=== PATIENT | female | born 1965 | race Caucasian/White ===

== ENCOUNTER 2016-05-10 15:10 | Emergency (ER) | payer BC ==
--- NOTE | 2016-05-10 16:07 | EDM.PDOC ---
ED HISTORY OF PRESENT ILLNESS - General Chief Complaint: Cardiovascular Problem Stated Complaint: CHEST PAIN Time Seen by Provider: 05/10/16 16:07 Source: Reports: Patient, Family, RN notes reviewed - History of Present Illness INITIAL COMMENTS - FREE TEXT/NARRATIVE: 50-year-old female presents with to have her heart checked out As noted some left-sided twinges of the left parasternal heart border for the past week; it does not happen with exertion The patient has a history of asthma and notes that her allergies are "acting up " while she is at her dad's place. 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: Reports: Endometriosis, , Other (see below) Other OB/BYN History: hysterectomy - Infectious Disease History Infectious Disease History: Reports: Chicken pox - Past Surgical History Respiratory Surgical History: Reports: None Social & Family History - Family History Family Medical History: Noncontributory - Tobacco Use Smoking Status *Q: Never Smoker Second Hand Smoke Exposure: No - Caffeine Use Caffeine Use: Reports: Soda - Recreational Drug Use Recreational Drug Use: No ED ROS GENERAL - Review of Systems Review Of Systems: See Below Constitutional: Reports: no symptoms HEENT: Reports: No symptoms Respiratory: Reports: shortness of breath Cardiovascular: Reports: Chest pain, Blood pressure problem, Other (Patient notes borderline hypertension, lipids are normal, positive family history of heart disease) Endocrine: Reports: no symptoms GI/Abdominal: Reports: No symptoms : Reports: no symptoms Musculoskeletal: Reports: no symptoms Skin: Reports: no symptoms Neurological: Reports: no symptoms ED EXAM, GENERAL - Physical Exam Exam: See Below Exam Limited By: No limitations General Appearance: alert, WD/WN, no apparent distress, anxious Eye Exam: bilateral eye: normal inspection, PERRL Ears: normal external exam, normal canal, hearing grossly normal Nose: normal inspection Throat/Mouth: Normal inspection, Normal lips, Normal teeth, Normal gums, Normal oropharynx, Normal voice, No airway compromise Head: atraumatic, normocephalic Neck: normal inspection, supple, non-tender Respiratory/Chest: no respiratory distress, lungs clear, normal breath sounds, other (chest wall tenderness along peristernal border) Cardiovascular: regular rate, rhythm, no murmur, no rub GI/Abdominal: normal bowel sounds, soft, non tender, no organomegaly Neurological: alert, oriented, CN II-XII intact, normal cognition Course - Vital Signs Text/Narrative:: ECG reviewed and normal Chest x-ray reviewed and normal Suspect chest wall pain Treat with OTC ibuprofen Last Recorded V/S: Last Vital Signs Temp 98.1 F 05/10/16 15:27 Pulse 61 05/10/16 17:13 Resp 12 05/10/16 17:13 BP 151/84 H 05/10/16 17:13 Pulse Ox 97 05/10/16 17:13 - Orders/Labs/Meds Orders: Active Orders 24 hr Category Date Time Status Cardiac Monitoring [RC] .As Directed Care 05/10/16 16:07 Active EKG Documentation Completion [RC] ASDIRECTED Care 05/10/16 16:08 Active Chest 2V [CR] Stat Exams 05/10/16 16:07 Taken EKG 12 Lead [EK] Stat Ther 05/10/16 16:07 Ordered Departure - Departure Time of Disposition: 17:26 Disposition: Home, Self-Care 01 Condition: good Clinical Impression: Chest wall pain Forms: ED Department Discharge Additional Instructions: Use ibuprofen 600 mg 3 times daily for chest pain Return to primary care provider if persistent symptoms - My Orders Last 24 Hours: My Active Orders 05/10/16 16:07 Cardiac Monitoring [RC] .As Directed Chest 2V [CR] Stat EKG 12 Lead [EK] Stat 05/10/16 16:08 EKG Documentation Completion [RC] ASDIRECTED - Assessment/Plan Last 24 Hours: My Active Orders 05/10/16 16:07 Cardiac Monitoring [RC] .As Directed Chest 2V [CR] Stat EKG 12 Lead [EK] Stat 05/10/16 16:08 EKG Documentation Completion [RC] ASDIRECTED
[2016-05-10 17:14] VITALS: BP 151/84
--- NOTE | 2016-05-11 10:08 | CR ---
Chest 2V HISTORY: Chest pain FINDINGS: The heart and vascular structures are normal in appearance. No infiltrates or effusions ar e demonstrated. The skeletal structures are unremarkable. IMPRESSION: Negative exam.
== END 2016-05-10 17:37 | disposition home or self-care (01) ==
LOC: JP.ED 15:10
DX: R07.89 Other chest pain (principal); J45.909 Unspecified asthma, uncomplicated; Z91.013 Allergy to seafood; Z79.899 Other long term (current) drug therapy
CPT/HCPCS: 71020; 71020-26; 93005; 99285-25